=== PATIENT | female | born 1955 | race Caucasian/White ===

== ENCOUNTER 2018-04-18 09:27 | Emergency (ER) | payer OTHER ==
[2018-04-18] MEDS ORDERED: NA CHLORIDE 0.9% 1,000 ML ONE (10:18)
[2018-04-18 10:34] LABS: Absolute Lymphocytes (CBC) 0.9 K/uL (0.7-4.9); Basophils % 0.5 % (0-1.3); Eosinophils % 0.5 % (0-4.4); Hematocrit 42.3 % (36.0-45.0); Lymphocytes % 8.3 % (15.3-44.8); MCH 33.1 pg (27.0-35.0); MCV 97.5 fL (80-100); MPV 8.2 fL (7.6-11.3); Monocytes % 9.2 % (3.3-12.3); RBC Red Blood Cell Count 4.34 M/uL (3.86-4.86)
[2018-04-18] MEDS ORDERED: DICYCLOMINE HCL 10 MG CAP ONE (10:47)
[2018-04-18 10:54] LABS: Albumin 3.7 g/dL (3.4-5.0); Bilirubin Direct 0.1 mg/dL (0-0.2); Bilirubin Total 0.7 mg/dL (0.2-1.0); Potassium 3.9 mmol/L (3.5-5.1); Protein, Total 7.2 g/dL (6.4-8.2)
--- NOTE | 2018-04-18 12:30 | ER ---
Nurse's Notes [facility] Name: Madison Fay Age: 62 yrs Sex: Female : 1955 Arrival Date: 04/18/2018 Time: 09:30 Bed 17 Private MD: Jakub Rodgers E Diagnosis: Gastrointestinal hemorrhage, unspecified Presentation: 04/18 09:38 Presenting complaint: Patient states: Reports small amount of bright red blood aj streaking on toilet paper and small amount in toilet bowl yesterday after episodes of constipation. Transition of care: patient was not received from another setting of care. Onset of symptoms was April 17, 2018. Risk Assessment: Do you want to hurt yourself or someone else? Patient reports no desire to harm self or others. Initial Sepsis Screen: Does the patient meet any 2 criteria? No. Patient's initial sepsis screen is negative. Does the patient have a suspected source of infection? No. Patient's initial sepsis screen is negative. Care prior to arrival: None. 09:38 Method Of Arrival: Ambulatory aj 09:38 Acuity: SHAUN 3 aj Triage Assessment: 09:41 General: Appears in no apparent distress. comfortable, Behavior is calm, cooperative, aj appropriate for age. Pain: Denies pain. Neuro: Level of Consciousness is awake, alert, obeys commands, Oriented to person, place, time, situation, Appropriate for age. Respiratory: Airway is patent Respiratory effort is even, unlabored, Respiratory pattern is regular, symmetrical. GI: Reports cramping, bloody stool. Derm: Skin is intact, is healthy with good turgor, Skin is pink, warm \T\ dry. normal. Historical: - Allergies: 09:41 No Known Allergies; aj - Home Meds: :41 Simvastatin Oral [Active]; Metoprolol Tartrate Oral [Active]; amlodipine oral [Active]; aj Aspirin Oral [Active]; - PMHx: 09:41 Hyperlipidemia; Hypertension; mitral valve prolapse; hemmorhoids; aj - PSHx: 09:41 None; aj - Immunization history:: Adult Immunizations up to date. - Social history:: Smoking status: Patient/guardian denies using tobacco, Patient uses alcohol, weekly. - Ebola Screening: : Patient negative for fever greater than or equal to 101.5 degrees Fahrenheit, and additional compatible Ebola Virus Disease symptoms Patient denies exposure to infectious person Patient denies travel to an Ebola-affected area in the 21 days before illness onset No symptoms or risks identified at this time. Screenin:09 Abuse screen: Denies threats or abuse. Nutritional screening: No deficits noted. mb3 Tuberculosis screening: No symptoms or risk factors identified. Fall Risk None identified. Assessment: 10:34 General: Appears in no apparent distress. comfortable, Behavior is calm, cooperative, mb3 appropriate for age. Pain: Complains of pain in abdomen. Neuro: No deficits noted. Cardiovascular: No deficits noted. Respiratory: No deficits noted. GI: Abdomen is flat, Bowel sounds present X 4 quads. Abd is soft and non tender X 4 quads. Reports constipation, bloody stool. : No signs and/or symptoms were reported regarding the genitourinary system. EENT: No signs and/or symptoms were reported regarding the EENT system. Derm: No signs and/or symptoms reported regarding the dermatologic system. Musculoskeletal: No signs and/or symptoms reported regarding the musculoskeletal system. Vital Signs: 09:41 BP 155 / 90; Pulse 81; Resp 16; Temp 98.4; Pulse Ox 99% on R/A; Weight 56.7 kg; Height aj 5 ft. 5 in. (165.10 cm); 12:59 BP 140 / 82; Pulse 61; Resp 16; Pulse Ox 97% on R/A; mb3 09:41 Body Mass Index 20.80 (56.70 kg, 165.10 cm) aj ED Course: 09:30 Patient arrived in ED. as 09:30 Jakub Rodgers MD is Private Physician. as 09:36 Jazmin Awad FNP-C is [facility]. snw 09:36 Jc Piedra MD is Attending Physician. snw 09:39 Triage completed. aj 09:41 Arm band placed on left wrist. Patient placed in waiting room, Patient notified of wait aj time. 10:05 Vignesh Hahn, AMANDA is Primary Nurse. mb3 10:22 Inserted saline lock: 22 gauge in right antecubital area, using aseptic technique. mb3 Blood collected. 10:35 Patient has correct armband on for positive identification. Placed in gown. Bed in low mb3 position. Call light in reach. Pulse ox on. NIBP on. 12:28 Jakub Smart MD is Referral Physician. snw 13:04 No provider procedures requiring assistance completed. IV discontinued, intact, mb3 bleeding controlled, No redness/swelling at site. Pressure dressing applied. Administered Medications: 10:27 Drug: NS 0.9% 1000 ml Route: IV; Rate: 1 bolus; Site: right antecubital; mb3 12:42 Follow up: Response: No adverse reaction; IV Status: Completed infusion; IV Intake: mb3 1000ml 10:45 Drug: Bentyl 20 mg Route: PO; mb3 12:43 Follow up: Response: No adverse reaction mb3 12:52 Drug: ProTONIX 40 mg Route: IVP; Site: right antecubital; mb3 12:55 Follow up: Response: No adverse reaction mb3 Intake: 12:42 IV: 1000ml; Total: 1000ml. mb3 Outcome: 12:29 Discharge ordered by . snw 13:04 Discharged to home ambulatory. mb3 13:04 Condition: stable 13:04 Discharge instructions given to patient, Instructed on discharge instructions, follow up and referral plans. medication usage, Demonstrated understanding of instructions, follow-up care, medications, Prescriptions given X 2. 13:04 Patient left the ED. mb3 Signatures: Lashanda Tabor, RN RN Jazmin Guillermo, SURGICAL SUPERVISOR-C SURGICAL SUPERVISOR-Milka Parham Ana ag Barnett, Mark, RN RN mb3 Corrections: (The following items were deleted from the chart) 12:46 12:45 UA MICROSCOPIC+U.LAB.BRZ drawn and sent. EDMS
--- NOTE | 2018-04-18 12:30 | EDPHYS ---
Physician Documentation [facility] Name: Madison Fay Age: 62 yrs Sex: Female : 1955 Arrival Date: 04/18/2018 Time: 09:30 Bed 17 Private MD: Jakub Rodgers E ED Physician Jc Piedra HPI: 04/18 10:23 This 62 yrs old Female presents to ER via Ambulatory with complaints of snw Abdominal Pain, Bloody Stools. 10:23 The patient presents with cramping. Onset: The symptoms/episode began/occurred s/p snw taking too many ex-lax. The symptoms do not radiate. The symptoms are described as crampy. Modifying factors: The symptoms are alleviated by stooling. Severity of pain: At its worst the pain was severe in the emergency department the pain has resolved. hx of constipation. The patient has not recently seen a physician, GI and Cardiology f/u scheduled for Tuesday. Historical: - Allergies: 09:41 No Known Allergies; aj - Home Meds: 09:41 Simvastatin Oral [Active]; Metoprolol Tartrate Oral [Active]; amlodipine oral [Active]; aj Aspirin Oral [Active]; - PMHx: 09:41 Hyperlipidemia; Hypertension; mitral valve prolapse; hemmorhoids; aj - PSHx: 09:41 None; aj - Immunization history:: Adult Immunizations up to date. - Social history:: Smoking status: Patient/guardian denies using tobacco, Patient uses alcohol, weekly. - Ebola Screening: : Patient negative for fever greater than or equal to 101.5 degrees Fahrenheit, and additional compatible Ebola Virus Disease symptoms Patient denies exposure to infectious person Patient denies travel to an Ebola-affected area in the 21 days before illness onset No symptoms or risks identified at this time. ROS: 10:20 Constitutional: Negative for fever, chills, and weight loss, Eyes: Negative for injury, snw pain, redness, and discharge, ENT: Negative for injury, pain, and discharge, Neck: Negative for injury, pain, and swelling, Cardiovascular: Negative for chest pain, palpitations, and edema, Respiratory: Negative for shortness of breath, cough, wheezing, and pleuritic chest pain, Back: Negative for injury and pain, : Negative for injury, bleeding, discharge, and swelling, MS/Extremity: Negative for injury and deformity, Skin: Negative for injury, rash, and discoloration, Neuro: Negative for headache, weakness, numbness, tingling, and seizure. 10:20 Abdomen/GI: Positive for constipation, relieved with stool softener and extra exlax- severe cramping and + results, last night noted bright red blood streaking in stool, denies abdominal pain. Exam: 10:20 Constitutional: This is a well developed, well nourished patient who is awake, alert, snw and in no acute distress. Head/Face: Normocephalic, atraumatic. Eyes: Pupils equal round and reactive to light, extra-ocular motions intact. Lids and lashes normal. Conjunctiva and sclera are non-icteric and not injected. Cornea within normal limits. Periorbital areas with no swelling, redness, or edema. ENT: Nares patent. No nasal discharge, no septal abnormalities noted. Tympanic membranes are normal and external auditory canals are clear. Oropharynx with no redness, swelling, or masses, exudates, or evidence of obstruction, uvula midline. Mucous membranes moist. Neck: Trachea midline, no thyromegaly or masses palpated, and no cervical lymphadenopathy. Supple, full range of motion without nuchal rigidity, or vertebral point tenderness. No Meningismus. Chest/axilla: Normal chest wall appearance and motion. Nontender with no deformity. No lesions are appreciated. Cardiovascular: Regular rate and rhythm with a normal S1 and S2. No gallops, murmurs, or rubs. Normal PMI, no JVD. No pulse deficits. Respiratory: Lungs have equal breath sounds bilaterally, clear to auscultation and percussion. No rales, rhonchi or wheezes noted. No increased work of breathing, no retractions or nasal flaring. Abdomen/GI: Soft, non-tender, with normal bowel sounds. No distension or tympany. No guarding or rebound. No evidence of tenderness throughout. + cramping, + bright red streaks, no rectal pain Back: No spinal tenderness. No costovertebral tenderness. Full range of motion. Skin: Warm, dry with normal turgor. Normal color with no rashes, no lesions, and no evidence of cellulitis. MS/ Extremity: Pulses equal, no cyanosis. Neurovascular intact. Full, normal range of motion. Neuro: Awake and alert, GCS 15, oriented to person, place, time, and situation. Cranial nerves II-XII grossly intact. Motor strength 5/5 in all extremities. Sensory grossly intact. Cerebellar exam normal. Normal gait. Vital Signs: 09:41 BP 155 / 90; Pulse 81; Resp 16; Temp 98.4; Pulse Ox 99% on R/A; Weight 56.7 kg; Height aj 5 ft. 5 in. (165.10 cm); 12:59 BP 140 / 82; Pulse 61; Resp 16; Pulse Ox 97% on R/A; mb3 09:41 Body Mass Index 20.80 (56.70 kg, 165.10 cm) aj MDM: 10:03 Patient medically screened. snw 12:30 Data reviewed: vital signs, nurses notes. Data interpreted: Pulse oximetry: on room air snw is 99 %. Interpretation: normal. Counseling: I had a detailed discussion with the patient and/or guardian regarding: the historical points, exam findings, and any diagnostic results supporting the discharge/admit diagnosis, the presence of at least one elevated blood pressure reading (>120/80) during this emergency department visit, lab results, the need for outpatient follow up, to return to the emergency department if symptoms worsen or persist or if there are any questions or concerns that arise at home. Special discussion: Based on the patient's Hx, exam, and Dx evaluation, there is no indication for emergent surgery or inpatient Tx. It is understood by the patient/guardian that if the Sx's persist or worsen they need to return immediately for re-evaluation. Based on the history and exam findings, there is no indication for further emergent testing or inpatient evaluation. I discussed with the patient/guardian the need to see the director of procurement for further evaluation of the symptoms. I discussed with the patient/guardian the need to see the primary care provider for further evaluation of the symptoms. 04/18 10:13 Order name: Basic Metabolic Panel; Complete Time: :58 snw 04/18 10:13 Order name: CBC with Diff; Complete Time: 10:42 snw 04/18 10:13 Order name: Hepatic Function; Complete Time: :58 snw 04/18 10:13 Order name: Lipase; Complete Time: : snw 04/18 10:23 Order name: Occult Blood--Ancillary bd 04/18 10:13 Order name: IV Saline Lock; Complete Time: 10:34 snw 04/18 10:13 Order name: Labs collected and sent; Complete Time: 10:34 snw 04/18 10:13 Order name: Urine Dipstick-Ancillary (obtain specimen); Complete Time: 12:45 snw 04/18 12:44 Order name: Urine Dipstick--Ancillary (enter results); Complete Time: 13:04 bd Administered Medications: 10:27 Drug: NS 0.9% 1000 ml Route: IV; Rate: 1 bolus; Site: right antecubital; mb3 12:42 Follow up: Response: No adverse reaction; IV Status: Completed infusion; IV Intake: mb3 1000ml 10:45 Drug: Bentyl 20 mg Route: PO; mb3 12:43 Follow up: Response: No adverse reaction mb3 12:52 Drug: ProTONIX 40 mg Route: IVP; Site: right antecubital; mb3 12:55 Follow up: Response: No adverse reaction mb3 Disposition: 17:10 Co-signature as Attending Physician, Jc Piedra MD. rn Disposition: 04/18/18 12:29 Discharged to Home. Impression: Gastrointestinal hemorrhage, unspecified. - Condition is Stable. - Discharge Instructions: Gastrointestinal Bleeding, Hypertension. - Prescriptions for Protonix 40 mg Oral Tablet - take 1 tablet by ORAL route once daily; 30 tablet. Bentyl 20 mg Oral Tablet - take 2 tablet by ORAL route every 6 hours As needed; 40 tablet. - Medication Reconciliation Form, Thank You Letter, Antibiotic Education, Prescription Opioid Use form. - Follow up: Jakub Smart MD; When: as scheduled; Reason: Recheck today's complaints, Continuance of care, Re-evaluation by your physician. Signatures: Dispatcher [employer] Lashanda Bob RN RN Jazmin Guillermo, ROLLS MILL OPERATOR-C ROLLS MILL OPERATOR-Csnw Jc Piedra MD MD rn Barnett, Mark, RN RN mb3 Corrections: (The following items were deleted from the chart) 12:46 10:13 UA MICROSCOPIC+U.LAB.BRZ ordered. EDMN EDMN 13:04 12:29 04/18/2018 12:29 Discharged to Home. Impression: Gastrointestinal hemorrhage, mb3 unspecified. Condition is Stable. Forms are Medication Reconciliation Form, Thank You Letter, Antibiotic Education, Prescription Opioid Use. Follow up: Jakub Smart; When: as scheduled; Reason: Recheck today's complaints, Continuance of care, Re-evaluation by your physician. snw
[2018-04-18] MEDS ORDERED: PANTOPRAZOLE 40 MG INJ ONE (12:48)
[2018-04-18 13:02] LABS: Urine Blood TRACE (NEG); Urine Glucose NEGATIVE (NEG); Urine Protein NEGATIVE (NEG)
[2018-04-18 13:17] VITALS: TEMP 98.4
[2018-04-18 13:18] VITALS: BP 140/82; O2SAT 97
== END 2018-04-18 13:04 | disposition home or self-care (01) ==
LOC: ER 09:27
DX: K92.2 Gastrointestinal hemorrhage, unspecified (principal); E78.5 Hyperlipidemia, unspecified
CPT/HCPCS: 36415; 80048; 80076; 81003; 82272; 83690; 85025; 96361; 96374; 99284; C9113; J7030

== ENCOUNTER 2019-03-30 09:38 | Emergency (ER) | payer OTHER ==
[2019-03-30 10:44] LABS: Absolute Lymphocytes (CBC) 1.1 K/uL (0.7-4.9); Basophils % 1.2 % (0-1.3); Eosinophils % 1.7 % (0-4.4); Hematocrit 44.6 % (36.0-45.0); Lymphocytes % 26.1 % (15.3-44.8); Monocytes % 12.5 % (3.3-12.3); RBC Red Blood Cell Count 4.51 M/uL (3.86-4.86)
--- NOTE | 2019-03-30 10:44 | RAD REPORT ---
EXAM DESCRIPTION: Tamanna Single View03/30/2019 10:35 am CLINICAL HISTORY: Cough COMPARISON: 2013 FINDINGS: The lungs appear clear of acute infiltrate. The heart is normal size IMPRESSION: No acute abnormalities displayed
[2019-03-30 10:46] LABS: Protime INR 0.98
[2019-03-30 11:04] LABS: ALT/SGPT 89 U/L (12-78); AST/SGOT 75 U/L (15-37); Albumin 4.6 g/dL (3.4-5.0); Alkaline Phosphatase 59 U/L (45-117); BUN Blood Urea Nitrogen 9 mg/dL (7-18); Bicarbonate 27 mmol/L (21-32); Bilirubin Direct 0.2 mg/dL (0-0.2); Bilirubin Total 0.7 mg/dL (0.2-1.0); Glucose Level 91 mg/dL (74-106); Lipase 457 U/L (73-393); Magnesium 2.2 mg/dL (1.8-2.4); NT PRO-BNP 116 pg/mL (<125); Potassium 4.1 mmol/L (3.5-5.1); Protein, Total 8.4 g/dL (6.4-8.2); Sodium Level 132 mmol/L (136-145); Troponin (Emerg Dept Use Only) < 0.02 ng/mL (0.0-0.045)
[2019-03-30] MEDS ORDERED: NA CHLORIDE 0.9% 1,000 ML ONE (11:16)
[2019-03-30 11:40] LABS: Urine Blood NEGATIVE (NEG); Urine Glucose NEGATIVE (NEG); Urine Protein NEGATIVE (NEG); Urine Specific Gravity 1.015 (1.005-1.030)
--- NOTE | 2019-03-30 11:45 | RAD REPORT ---
EXAM DESCRIPTION: CT - Abdomen Pelvis W Contrast - 03/30/2019 11:28 am CLINICAL HISTORY: Abdominal pain. Lower abdominal pain COMPARISON: 2012 TECHNIQUE: Computed axial tomography of the abdomen and pelvis was obtained. 100 cc Isovue-300 is ad ministered intravenously. Oral contrast was given. All CT scans are performed using dose optimization technique as appropriate and may include automated exposure control or mA/KV adjustment according to patient size. FINDINGS: The liver, spleen, pancreas, adrenals and kidneys appear unremarkable. The appendix is normal caliber. There is no evidence of diverticulitis
--- NOTE | 2019-03-30 12:19 | ER ---
Nurse's Notes [facility] Name: Madison Fay Age: 63 yrs Sex: Female : 1955 Arrival Date: 03/30/2019 Time: 09:41 Bed 15 Private MD: Jakub Rodgers E Diagnosis: Abdominal tenderness;Constipation Presentation: 03/30 10:02 Presenting complaint: Patient states: lower abd pain X 3 weeks, intermittent, bloating, iw states she feels like something is going down into her stomach, was prescribed doxycycline by Dr. lima, completed it, is due for a repeat colonoscopy. Transition of care: patient was not received from another setting of care. Onset of symptoms was March 20, 2019. Risk Assessment: Do you want to hurt yourself or someone else? Patient reports no desire to harm self or others. Initial Sepsis Screen: Does the patient meet any 2 criteria? No. Patient's initial sepsis screen is negative. Does the patient have a suspected source of infection? No. Patient's initial sepsis screen is negative. Care prior to arrival: None. 10:02 Method Of Arrival: Ambulatory iw 10:02 Acuity: SHAUN 3 iw Triage Assessment: 10:26 General: Appears in no apparent distress. Behavior is calm, cooperative. Respiratory: ls4 Airway is patent Respiratory effort is even, unlabored, Respiratory pattern is regular, Breath sounds are clear bilaterally. GI: Abdomen is non-distended, Stools are reported to be normal. Last BM was March 30, 2019. Bowel sounds present X 4 quads. Abd is soft and non tender X 4 quads. : No deficits noted. 11:08 Pain: Complains of pain in left lower quadrant and right lower quadrant Pain currently ls4 is 3 out of 10 on a pain scale. Neuro: No deficits noted. Cardiovascular: No deficits noted. Derm: Skin is pink, warm \T\ dry. Historical: - Allergies: 10:09 unknown diuretic; iw - Home Meds: 10:08 amlodipine 5 mg tab 1 tab once daily [Active]; metoprolol tartrate 25 mg Oral tab 1 tab iw 2 times per day [Active]; Fish Oil oral oral daily [Active]; simvastatin 40 mg Oral tab 1 tab once daily [Active]; aspirin 81 mg Oral TbEC 1 tab once daily [Active]; Stool Softener oral oral [Active]; - PMHx: 10:08 hemmorhoids; Hyperlipidemia; Hypertension; mitral valve prolapse; iw - PSHx: 10:08 None; iw - Immunization history:: Adult Immunizations up to date. - Social history:: Smoking status: Patient/guardian denies using tobacco. - Ebola Screening: : Patient negative for fever greater than or equal to 101.5 degrees Fahrenheit, and additional compatible Ebola Virus Disease symptoms Patient denies exposure to infectious person Patient denies travel to an Ebola-affected area in the 21 days before illness onset No symptoms or risks identified at this time. - Family history:: not pertinent. Screenin:25 Abuse screen: Denies threats or abuse. Denies injuries from another. Nutritional ls4 screening: No deficits noted. Tuberculosis screening: No symptoms or risk factors identified. Fall Risk None identified. Assessment: 10:27 Musculoskeletal: Circulation, motion, and sensation intact. Capillary refill < 3 ls4 seconds, Range of motion: intact in all extremities, Swelling absent. 10:28 GI: Reports bloating, cramping, flatulence, gaseousness. ls4 11:30 Reassessment: Patient appears in no apparent distress at this time. Patient and/or ls4 family updated on plan of care and expected duration. Pain level reassessed. Patient is alert, oriented x 3, equal unlabored respirations, skin warm/dry/pink. Vital Signs: 10:08 BP 145 / 89; Pulse 61; Resp 16; Temp 98.0; Pulse Ox 99% on R/A; Weight 63.5 kg; Pain ls4 3/10; 10:09 Weight 54.88 kg; Height 5 ft. 4 in. (162.56 cm); Pain 7/10; iw 11:10 BP 138 / 74; Pulse 60; Resp 16; Pulse Ox 99% on R/A; Pain 3/10; ls4 12:42 BP 132 / 72; Pulse 62; Resp 16; Pulse Ox 99% on R/A; Pain 3/10; ls4 10:09 Body Mass Index 20.77 (54.88 kg, 162.56 cm) iw ED Course: 09:41 Patient arrived in ED. mr 09:41 Jakub Rodgers MD is Private Physician. mr 09:50 Eloina Basurto RN is Primary Nurse. ls4 10:00 Vincenzo Perez MD is Attending Physician. lucero 10:05 Triage completed. iw 10:24 Initial lab(s) drawn, by me, sent to lab. Inserted saline lock: 22 gauge in right jb1 antecubital area, using aseptic technique. Blood collected. 10:25 Magnesium Sent. ls4 10:25 LFT's Sent. ls4 10:25 CBC with Diff Sent. ls4 10:25 Patient has correct armband on for positive identification. Bed in low position. Call ls4 light in reach. Side rails up X 1. campus monitor on. Pulse ox on. NIBP on. Warm blanket given. Verbal reassurance given. 10:28 Arm band placed on. ls4 10:32 Basic Metabolic Panel Sent. ls4 10:34 X-ray completed. Portable x-ray completed in exam room. Patient tolerated procedure ml well. 10:35 XRAY Chest (1 view) In Process Unspecified. EDMS 10:58 Urine Dipstick--Ancillary (enter results) Sent. ls4 11:08 No provider procedures requiring assistance completed. ls4 11:30 CT completed. Patient tolerated procedure well. Note: pt rt ac iv not patent, sj discontinued and started a new 22g difussics in lt ac. Patient moved to CT via wheelchair. Patient moved back from CT. 11:43 CT Abd/Pelvis - PO and IV Contrast In Process Unspecified. EDMS 12:09 Jakub Rodgers MD is Referral Physician. lucero 12:09 Jakub Lima MD is Referral Physician. lucero 12:43 IV discontinued, intact, bleeding controlled, No redness/swelling at site. Pressure ls4 dressing applied. Administered Medications: 10:59 Drug: NS 0.9% 1000 ml Route: IV; Rate: 125 ml/hr; Site: right antecubital; ls4 12:38 Follow up: IV Status: Completed infusion; IV Intake: 225ml ls4 Intake: 12:38 IV: 225ml; Total: 225ml. ls4 Outcome: 12:10 Discharge ordered by . lucero 12:42 Discharged to home ambulatory, with family. ls4 12:42 Condition: good 12:42 Discharge instructions given to patient, Instructed on discharge instructions, follow up and referral plans. medication usage, benefits of quitting smoking, Demonstrated understanding of instructions, follow-up care, medications, Prescriptions given X 2. 12:43 Patient left the ED. ls4 Signatures: Dispatcher [employer] TIMOTEO Vargas, Betito jb1 Vincenzo Perez MD MD cha Rivera, Yara Nicole, Shanon Vuong RN RN iw Lopez, Eloina Nguyen RN RN ls4
--- NOTE | 2019-03-30 12:20 | EDPHYS ---
Physician Documentation [facility] Name: Madison Fay Age: 63 yrs Sex: Female : 1955 Arrival Date: 03/30/2019 Time: 09:41 Bed 15 Private MD: Jakub Rodgers E ED Physician Vincenzo Perez HPI: 03/30 10:40 This 63 yrs old Female presents to ER via Ambulatory with complaints of lucero Abdominal Pain. 10:40 This 63 yrs old Female presents to ER via Ambulatory with complaints of lucero Abdominal Pain. 10:40 The patient presents with abdominal pain in the lower abdomen, abdominal distention in lucero the upper abdomen, in the lower abdomen. Onset: The symptoms/episode began/occurred 1 day(s) ago. The symptoms do not radiate. Associated signs and symptoms: none. Modifying factors: The symptoms are alleviated by nothing, the symptoms are aggravated by nothing. Severity of pain: At its worst the pain was mild in the emergency department the pain is unchanged. The patient has not experienced similar symptoms in the past. Historical: - Allergies: 10:09 unknown diuretic; iw - Home Meds: 10:08 amlodipine 5 mg tab 1 tab once daily [Active]; metoprolol tartrate 25 mg Oral tab 1 tab iw 2 times per day [Active]; Fish Oil oral oral daily [Active]; simvastatin 40 mg Oral tab 1 tab once daily [Active]; aspirin 81 mg Oral TbEC 1 tab once daily [Active]; Stool Softener oral oral [Active]; - PMHx: 10:08 hemmorhoids; Hyperlipidemia; Hypertension; mitral valve prolapse; iw - PSHx: 10:08 None; iw - Immunization history:: Adult Immunizations up to date. - Social history:: Smoking status: Patient/guardian denies using tobacco. - Ebola Screening: : Patient negative for fever greater than or equal to 101.5 degrees Fahrenheit, and additional compatible Ebola Virus Disease symptoms Patient denies exposure to infectious person Patient denies travel to an Ebola-affected area in the 21 days before illness onset No symptoms or risks identified at this time. - Family history:: not pertinent. ROS: 10:40 Constitutional: Negative for fever, chills, and weight loss, Eyes: Negative for injury, lucero pain, redness, and discharge, ENT: Negative for injury, pain, and discharge, Neck: Negative for injury, pain, and swelling, Cardiovascular: Negative for chest pain, palpitations, and edema, Respiratory: Negative for shortness of breath, cough, wheezing, and pleuritic chest pain, Back: Negative for injury and pain, : Negative for injury, bleeding, discharge, and swelling, MS/Extremity: Negative for injury and deformity, Skin: Negative for injury, rash, and discoloration, Neuro: Negative for headache, weakness, numbness, tingling, and seizure, Psych: Negative for depression, anxiety, suicide ideation, homicidal ideation, and hallucinations, Allergy/Immunology: Negative for hives, rash, and allergies, Endocrine: Negative for neck swelling, polydipsia, polyuria, polyphagia, and marked weight changes, Hematologic/Lymphatic: Negative for swollen nodes, abnormal bleeding, and unusual bruising. 10:40 Abdomen/GI: Positive for abdominal pain, of the right lower quadrant and left lower quadrant. Exam: 10:40 Constitutional: This is a well developed, well nourished patient who is awake, alert, lucero and in no acute distress. Head/Face: Normocephalic, atraumatic. Eyes: Pupils equal round and reactive to light, extra-ocular motions intact. Lids and lashes normal. Conjunctiva and sclera are non-icteric and not injected. Cornea within normal limits. Periorbital areas with no swelling, redness, or edema. ENT: Nares patent. No nasal discharge, no septal abnormalities noted. Tympanic membranes are normal and external auditory canals are clear. Oropharynx with no redness, swelling, or masses, exudates, or evidence of obstruction, uvula midline. Mucous membranes moist. Neck: Trachea midline, no thyromegaly or masses palpated, and no cervical lymphadenopathy. Supple, full range of motion without nuchal rigidity, or vertebral point tenderness. No Meningismus. Chest/axilla: Normal chest wall appearance and motion. Nontender with no deformity. No lesions are appreciated. Cardiovascular: Regular rate and rhythm with a normal S1 and S2. No gallops, murmurs, or rubs. Normal PMI, no JVD. No pulse deficits. Respiratory: Lungs have equal breath sounds bilaterally, clear to auscultation and percussion. No rales, rhonchi or wheezes noted. No increased work of breathing, no retractions or nasal flaring. Back: No spinal tenderness. No costovertebral tenderness. Full range of motion. Female : Normal external genitalia. Skin: Warm, dry with normal turgor. Normal color with no rashes, no lesions, and no evidence of cellulitis. MS/ Extremity: Pulses equal, no cyanosis. Neurovascular intact. Full, normal range of motion. Neuro: Awake and alert, GCS 15, oriented to person, place, time, and situation. Cranial nerves II-XII grossly intact. Motor strength 5/5 in all extremities. Sensory grossly intact. Cerebellar exam normal. Normal gait. Psych: Awake, alert, with orientation to person, place and time. Behavior, mood, and affect are within normal limits. 10:40 Abdomen/GI: Inspection: abdomen appears normal, Bowel sounds: normal, Palpation: mild abdominal tenderness, in the right lower quadrant and left lower quadrant, Liver: no appreciated palpable abnormalities, Hernia: not appreciated. Vital Signs: 10:08 BP 145 / 89; Pulse 61; Resp 16; Temp 98.0; Pulse Ox 99% on R/A; Weight 63.5 kg; Pain ls4 3/10; 10:09 Weight 54.88 kg; Height 5 ft. 4 in. (162.56 cm); Pain 7/10; iw 11:10 BP 138 / 74; Pulse 60; Resp 16; Pulse Ox 99% on R/A; Pain 3/10; ls4 12:42 BP 132 / 72; Pulse 62; Resp 16; Pulse Ox 99% on R/A; Pain 3/10; ls4 10:09 Body Mass Index 20.77 (54.88 kg, 162.56 cm) iw MDM: 10:00 Patient medically screened. [facility] 10:40 Data reviewed: vital signs, nurses notes, lab test result(s), EKG, radiologic studies. [facility] 03/30 10:04 Order name: Basic Metabolic Panel [facility] 03/30 10:04 Order name: CBC with Diff 03/30 10:04 Order name: LFT's 03/30 10:04 Order name: Magnesium [facility] 03/30 10:04 Order name: NT PRO-BNP; Complete Time: 11:42 [facility] 03/30 10:04 Order name: PT-INR; Complete Time: 11:42 [facility] 03/30 10:04 Order name: Troponin (emerg Dept Use Only); Complete Time: 11:42 [facility] 03/30 10:04 Order name: Lipase; Complete Time: 11:42 [facility] 03/30 10:04 Order name: Urine Culture [facility] 03/30 10:05 Order name: Basic Metabolic Panel; Complete Time: 11:42 [facility] 03/30 10:05 Order name: CBC with Automated Diff; Complete Time: 11:42 [facility] 03/30 10:05 Order name: Liver (Hepatic) Function; Complete Time: 11:42 [facility] 03/30 10:05 Order name: Magnesium; Complete Time: 11:42 [facility] 03/30 10:43 Order name: Urine Dipstick--Ancillary (enter results) 03/30 10:04 Order name: XRAY Chest (1 view); Complete Time: 11:42 [facility] 03/30 10:04 Order name: EKG; Complete Time: 10:07 [facility] 03/30 10:04 Order name: Cardiac monitoring; Complete Time: 10:24 [facility] 03/30 10:04 Order name: EKG - Nurse/Tech; Complete Time: 10:29 [facility] 03/30 10:04 Order name: IV Saline Lock; Complete Time: 10:25 [facility] 03/30 10:04 Order name: Labs collected and sent; Complete Time: 10:25 [facility] 03/30 10:04 Order name: O2 Per Protocol; Complete Time: 10:24 [facility] 03/30 10:04 Order name: O2 Sat Monitoring; Complete Time: 10:32 [facility] 03/30 10:04 Order name: Urine Dipstick-Ancillary (obtain specimen); Complete Time: 10:29 [facility] 03/30 10:04 Order name: CT Abd/Pelvis - PO and IV Contrast [facility] Administered Medications: 10:59 Drug: NS 0.9% 1000 ml Route: IV; Rate: 125 ml/hr; Site: right antecubital; ls4 12:38 Follow up: IV Status: Completed infusion; IV Intake: 225ml ls4 Disposition: 03/30/19 12:10 Discharged to Home. Impression: Abdominal tenderness, Constipation. - Condition is Stable. - Discharge Instructions: Abdominal Pain, Adult, Constipation, Adult, Constipation, Adult, [id number], Abdominal Pain, Adult, [id number]. - Prescriptions for Bentyl 20 mg Oral Tablet - take 1 tablet by ORAL route every 6 hours As needed; 20 tablet. Pepcid 20 mg Oral Tablet - take 1 tablet by ORAL route every 12 hours for 10 days; 20 tablet. - Medication Reconciliation Form, Thank You Letter, Antibiotic Education, Prescription Opioid Use form. - Follow up: Jakub Rodgers MD; When: 2 - 3 days; Reason: Recheck today's complaints, Continuance of care, Re-evaluation by your physician. Follow up: Jakub Smart MD; When: 2 - 3 days; Reason: Recheck today's complaints, Continuance of care, Re-evaluation by your physician. - Problem is new. - Symptoms have improved. Signatures: Dispatcher [employer] EDMS Vincenzo Perez MD MD cha Williams, Irene, AMANDA RN iw Eloina Basurto RN RN ls4 Corrections: (The following items were deleted from the chart) 12:43 12:10 03/30/2019 12:10 Discharged to Home. Impression: Abdominal tenderness; ls4 Constipation. Condition is Stable. Forms are Medication Reconciliation Form, Thank You Letter, Antibiotic Education, Prescription Opioid Use. Follow up: Jakub Rodgers; When: 2 - 3 days; Reason: Recheck today's complaints, Continuance of care, Re-evaluation by your physician. Follow up: Jakub Smart; When: 2 - 3 days; Reason: Recheck today's complaints, Continuance of care, Re-evaluation by your physician. Problem is new. Symptoms have improved. lucero
[2019-03-30 13:10] VITALS: TEMP 98; O2SAT 99
[2019-03-30 13:13] VITALS: BP 132/72
--- NOTE | 2019-03-30 16:42 | EKG ---
Test Date: 2019-03-30 Test Time: 10:30:13 Commissary Worker: PENNY MEASUREMENT RESULTS: Intervals: Rate: 65 HI: 192 QRSD: 90 QT: 416 QTc: 432 [place]: P: 59 HI: 192 QRS: -10 T: 27 INTERPRETIVE STATEMENTS: Normal sinus rhythm Normal ECG Compared to ECG 07/07/2014 10:44:12 No significant changes Electronically Signed On 03-30-19 16:41:42 CDT by Denzel Brown
== END 2019-03-30 12:43 | disposition home or self-care (01) ==
LOC: ER 09:38
DX: K59.00 Constipation, unspecified (principal); I10 Essential (primary) hypertension; E78.5 Hyperlipidemia, unspecified; I34.1 Nonrheumatic mitral (valve) prolapse; Z79.82 Long term (current) use of aspirin
CPT/HCPCS: 36415; 71045; 74177; 80048; 80076; 81003; 83690; 83735; 83880; 84484; 85025; 85610; 87086; 87088; 93005; 96360; 96361; 99285; J7030; Q9967

== ENCOUNTER 2022-09-11 12:31 | Inpatient (IN) | payer OTHER ==
[2022-09-11 13:18] VITALS: BMI 21.1
[2022-09-11] MEDS ORDERED: LIDOCAINE 2% MPF 5 ML VIAL ONE ×2 (15:12)
[2022-09-11] MEDS ORDERED: propofoL 200 MG/20 ML VIAL IV ONE (15:12)
[2022-09-11] MEDS ORDERED: FENTANYL CITR 100 MCG/2 ML ONE (15:13)
[2022-09-11] MEDS ORDERED: ROCURONIUM 50 MG/5 ML VIAL IV ONE (15:13)
[2022-09-11] MEDS ORDERED: dexAMETHasone 10 MG/ML VIAL ONE (15:18)
[2022-09-11] MEDS ORDERED: ONDANSETRON 4 MG/2 ML VIAL ONE (15:18)
[2022-09-11] MEDS ORDERED: KETOROLAC 30 MG/ML INJ ONE (15:18)
[2022-09-11] MEDS ORDERED: Ringers Lactate 1,000 ML IV ONE (15:40)
[2022-09-11] MEDS ORDERED: CEFOXITIN SODIUM 1 GM/VIAL ONE (15:47)
[2022-09-11] MEDS ORDERED: NA CIT/CITRIC AC 30 ML ORAL UDC ONE (15:51)
--- NOTE | 2022-09-11 16:07 | P.HP ---
Date of Service: 09/11/22 PC: This 66-year-old female presented to the emergency room with severe right lower quadrant abdominal pain for diagnosis and treatment. HPC: Patient states that her pain began yesterday. Just had generalized abdominal pain and bloating. Today however the pain intensified she could no longer stand it and came to the ER for evaluation. PSHx: Tubal ligation PMHx: Hypertension, mitral valve prolapse Social Hx: Allergic to hydrochlorothiazide Sys R: No cough, wheeze, shortness of breath. No chest pain or palpitations. Denies any urinary complaints. States he is otherwise been in good health. O/E: Awake alert vital signs are stable HEENT: Not jaundiced Chest: Chest movement equal bilaterally Abd: Patient is markedly tender in the right lower quadrant with guarding [place]: Intact Data: CT scan supports clinical diagnosis of acute abdomen with appendicitis Impression: Acute abdomen with appendicitis Plan: I will taken the operating room for laparoscopic possible open appendectomy. The risks of this procedure have been discussed. The possibility of bleeding, infection, injury to bowel and surrounding structures was outlined. The possible need for an open and or further surgeries and procedures was discussed. She understands and wants us to proceed.
[2022-09-11] MEDS ORDERED: LABETALOL 20 MG/4ML SYRINGE IV ONE ×2 (16:17→16:36)
[2022-09-11] MEDS ORDERED: GLYCOPYRROLATE 0.2 MG/ML SYR ONE (16:35)
[2022-09-11] MEDS ORDERED: SUGAMMADEX SODIUM 200 MG/2 ML VIAL IV ONE (17:12)
--- NOTE | 2022-09-11 17:18 | P.OP ---
Preoperative diagnosis: Acute abdomen with appendicitis Postoperative diagnosis: The same with intra-abdominal adhesions Primary procedure: Laparoscopic appendectomy Secondary procedure: Lysis of extensive adhesions Anesthesia: General Estimated blood loss: Less than 20 cc Specimen: 1 appendix Operative Technique: The patient brought the operating room and placed supine on the table. After the induction of adequate general endotracheal anesthesia, the area of the abdomen was prepped with a DuraPrep solution, a Cervantes catheter was inserted, and she was draped in the usual aseptic manner. Subumbilical incision was made. This was brought down through the skin and subcutaneous tissue. The Visiport was used to enter the peritoneal cavity and created pneumoperitoneum to approximately 12 mmHg. Under direct vision a 5 mm trocar was placed in the right upper quadrant, and another down in the midline between the pubic symphysis and the umbilicus. The patient was now placed in reverse Trendelenburg. The patient table was rolled to the left. We could visualize the right lower quadrant. We were immediately struck by the omentum being adherent to the anterior abdominal wall in the right lower quadrant. These adhesions were taken down using blunt and sharp dissection. As we did so we could finally see the cecum which lay in a pelvic position. There were considerable amount of adhesions to the right lateral sidewall. These were freed up and we were able to mobilize the cecum medially. As we did so we saw that the distal ileum is adherent to the area. The appendix was identified. It was found to be rather short and stabbing with a broad base. The junction between the cecum and the appendix was identified. We were able to insert a linear stapler across this after converting the 10 mm to a 12 at the umbilicus. The instrument was fired. A reload was now brought up to the vasculature of the appendix. This was placed across the mesentery of the appendix and fired. The specimen was now removed. Attention was turned back towards the cecum and distal ileum. In this area there was some adhesions on the serosal surfaces that held the structures together. The omentum was also adherent in this area. It was gently freed up to mobilize this area. These are longstanding adhesions and were quite thick. The structures having been returned to their normal anatomical position the rest of the abdomen was inspected. No other gross pathology was noted. At this point attention was turned back towards the umbilicus. This was approximated using the Endo Close and absorbable suture. At this point the trochars were removed, the pneumoperitoneum collapsed, and the suture tied. Perry were then applied to the skin. At the end of the procedure she was in a stable condition when sent to the recovery room. Needle sponge instrument count were correct. No drains were placed. Complications: None Transferred to: Recovery Room Condition: Good
[2022-09-11] MEDS ORDERED: NEOSTIGMINE 1 MG/ML -10 ML VIAL ONE (17:22)
[2022-09-11] MEDS ORDERED: PROMETHAZINE INJ 25 MG/ML AMP ONE (17:23)
[2022-09-11] MEDS: HYDROMORPHONE HCL 1 MG/ML INJ ONE ×4 (17:27→17:51)
[2022-09-11] MEDS ORDERED: ONDANSETRON 4 MG/2 ML VIAL IV PRN (17:57)
[2022-09-11] MEDS ORDERED: MORPHINE 4 MG/ML SYR IV PRN (17:57)
[2022-09-11] MEDS ORDERED: HYDROCODONE/APAP 7.5/325 MG TAB PO PRN (17:57)
[2022-09-11] MEDS ORDERED: Ringers Lactate 1,000 ML IV SCH (18:00)
[2022-09-12 09:21] VITALS: O2SAT 97
--- NOTE | 2022-09-12 16:31 | P.DS ---
Admission Date: 09/11/22 Discharge Date: 09/12/22 Disposition: ROUTINE DISCHARGE Discharge Condition: GOOD Reason for Admission: Acute postoperative abdominal pain Procedures: Laparoscopic appendectomy, lysis of extensive intra-abdominal adhesions Brief History of Present Illness: Patient presented to the emergency room after a 24-hour history of right lower quadrant abdominal pain Hospital Course: The patient was seen in the emergency room. A CT scan confirmed the clinical diagnosis of acute appendicitis. She was brought to the operating room where she underwent an appendectomy. At that time it was found that there was a marked amount of adhesions and scar tissue particularly in the right lower quadrant necessitating taking down this considerable adhesive load. The appendix having been identified, was dealt with in the usual manner. The patient was admitted postoperatively for observation and pain control due to the extent with which we had to dissect down these adhesions. Today she is up ambulating, tolerating a diet, feels much better, and is anxious to go home. Vital Signs/Physical Exam: Temp Pulse Resp BP Pulse Ox 98.2 F 80 16 127/70 97 09/12/22 12:00 09/12/22 12:00 09/12/22 12:00 09/12/22 12:00 09/12/22 12:00 Home Medications: Amlodipine [Norvasc] 10 mg PO DAILY 09/11/22 Aspirin [Aspirin EC 81 MG] 81 mg PO DAILY 09/11/22 Bifidobacterium Infantis [Align] 4 mg PO DAILY 09/11/22 Calcium Carbonate [Calcium] 600 mg PO DAILY 09/11/22 Cholecalciferol (Vitamin D3) [Vitamin D 1000 Iu Tab*] 1,000 unit PO DAILY 09/11/22 Docusate [Colace Cap*] 100 mg PO DAILY 09/11/22 Fish Oil/Dha/Epa [Fish Oil 1,200 mg Fish Oil] 1,200 mg PO BID 09/11/22 Folic Acid 1 mg PO DAILY 09/11/22 Metoprolol Tartrate 25 mg PO BID 09/11/22 Simvastatin 40 mg PO DAILY 09/11/22 Physician Discharge Instructions: DC IV, discharge home. Diet as tolerated. Keep yourself well-hydrated. Incentive spirometer. You may shower. Change dressings as needed. Pain medicine as discussed. Milk of magnesia or stool softeners as needed. Call my office for an appointment to be seen next or Tuesday. Any questions or problems, go to the emergency room, or contact my office. Diet: Regular Activity: Ad saud Followup: Lexa Kirkland MD [ACTIVE - CAN ADMIT] - 1-2 Weeks
[2022-09-12 16:46] VITALS: BP 149/69; TEMP 98.9
== END 2022-09-12 17:20 | disposition home or self-care (01) | DRG 337 ==
LOC: 2ND 12:31
PROVIDERS: ADMIT Surgery; ATTEND Surgery
PROC: 0DNW4ZZ Release Peritoneum, Percutaneous Endoscopic Approach (ICD-10-PCS; 2022-09-11)
PROC: 0DTJ4ZZ Resection of Appendix, Percutaneous Endoscopic Approach (ICD-10-PCS; principal; 2022-09-11 15:00)
DX: K35.80 Unspecified acute appendicitis (principal); K66.0 Peritoneal adhesions (postprocedural) (postinfection); I34.1 Nonrheumatic mitral (valve) prolapse; I10 Essential (primary) hypertension; Z98.51 Tubal ligation status; Z88.8 Allergy status to other drugs, medicaments and biological substances
CPT/HCPCS: 88304; 94010; J0694; J1100; J1170; J2001; J2405; J2550; J2704; J2710; J3010; J7120

== ENCOUNTER 2023-03-18 23:33 | Emergency (ER) | payer OTHER ==
[2023-03-19 00:35] LABS: Absolute Lymphocytes (CBC) 0.6 K/uL (0.7-4.9); Hematocrit 40.2 % (36.0-45.0); Lymphocytes % 6.2 % (15.3-44.8); MCV 96.8 fL (80-100); MPV 7.3 fL (7.6-11.3); RBC Red Blood Cell Count 4.16 M/uL (3.86-4.86)
[2023-03-19 00:53] LABS: Albumin 4.4 g/dL (3.4-5.0); Bilirubin Total 0.6 mg/dL (0.2-1.0); Potassium 3.7 mEq/L (3.5-5.1); Protein, Total 8.2 g/dL (6.4-8.2)
[2023-03-19 01:06] LABS: Urine Bilirubin 2+ (Negative); Urine Clarity Clear (Clear); Urine Color DK YELLOW (Yellow); Urine Glucose NEGATIVE (Negative)
[2023-03-19 01:07] LABS: Urine Blood Negative (Negative); Urine Protein 1+ (Negative); Urine Urobilinogen 2+ mg/dL (0.2-1.0)
[2023-03-19] MEDS ORDERED: NA CHLORIDE 0.9% 1,000 ML ONE (02:05)
[2023-03-19] MEDS ORDERED: ACETAMINOPHEN 500 MG TAB ONE (02:05)
[2023-03-19] MEDS ORDERED: ONDANSETRON 4 MG/2 ML VIAL ONE (02:05)
[2023-03-19] MEDS ORDERED: IBUPROFEN 400 MG TAB ONE (02:05)
[2023-03-19 03:27] LABS: SARS-CoV-2 Antigen Rapid Res Negative (Negative)
[2023-03-19] MEDS ORDERED: CEFTRIAXONE 1000 MG/VIAL ONE (03:35)
[2023-03-19] MEDS ORDERED: NA CHLORIDE 0.9% 50 ML ONE (03:36)
--- NOTE | 2023-03-19 03:46 | EDPHYS ---
Physician Documentation [facility] Name: Madison Fay Age: 67 yrs Sex: Female : 1955 Arrival Date: 03/18/2023 Time: 23:33 Bed 7 Private MD: ED Physician Kennedy Conklin HPI: 03/18 23:41 This 67 yrs old Female presents to ER via Unassigned with complaints of Pain sp4 With Urination, Nausea, Fever, PT states she can't quit shaking. 03/19 02:27 67-year-old female with history of hyperlipidemia, hypertension, mitral valve prolapse, sp4 hemorrhoids presents with feeling unwell for 1 week. Patient was seen at [facility] for the same and was diagnosed with UTI prescribed Bactrim, prior ED him today but she felt unwell at home and returns now for fever chills and complaint of cloudy urine. Patient additionally 1 week ago was seen by her primary physician who diagnosed her with UTI and gave her Macrobid p.o.. Today patient complains of generalized fatigue, pain with urination, nausea, fever, and feeling unwell. Historical: - Allergies: 03/18 23:56 HCTZ; pf1 - PMHx: 23:56 Hyperlipidemia; Hypertension; mitral valve prolapse; hemmorhoids; pf1 - PSHx: 23:56 Appendectomy; pf1 - Social history:: Patient/guardian denies using alcohol, street drugs, IV drugs, caffeine, over the counter diet medications, tobacco products. - Family history:: not pertinent. ROS: 03/19 02:27 Constitutional: Positive for fever, chills, and generalized weakness, negative for sp4 weight loss. Eyes: Negative for injury, pain, redness, and discharge, ENT: Negative for injury, pain, and discharge, Neck: Negative for injury, pain, and swelling, Cardiovascular: Negative for chest pain, palpitations, and edema, Respiratory: Negative for shortness of breath, cough, wheezing, and pleuritic chest pain, Abdomen/GI: Negative for abdominal pain, nausea, vomiting, diarrhea, and constipation, Back: Negative for injury and pain, : Negative for injury, bleeding, discharge, and swelling, positive for pain on urination and cloudy urine. MS/Extremity: Negative for injury and deformity, Skin: Negative for injury, rash, and discoloration, Neuro: Negative for headache, weakness, numbness, tingling, and seizure, Psych: Negative for depression, anxiety, Allergy/Immunology: Negative for hives, rash, and allergies Endocrine: Negative for neck swelling, polydipsia, polyuria, polyphagia, and weight changes Hematologic/Lymphatic: Negative for swollen nodes, abnormal bleeding, and unusual bruising Exam: 02:27 Constitutional: This is a well developed, well nourished patient who is awake, alert, sp4 and in no acute distress. Head/Face: Normocephalic, atraumatic. Eyes: Pupils equal round and reactive to light, extra-ocular motions intact. Lids and lashes normal. Conjunctiva and sclera are not injected. Cornea within normal limits. Periorbital areas with no swelling, redness, or edema. ENT: Nares patent. No nasal discharge, no septal abnormalities noted. Tympanic membranes are normal and external auditory canals are clear. Oropharynx with no redness, swelling, or masses, exudates, or evidence of obstruction, uvula midline. Mucous membranes moist. Neck: Trachea midline, no thyromegaly or masses palpated, and no cervical lymphadenopathy. Supple, full range of motion without nuchal rigidity, or vertebral point tenderness. Chest/axilla: Normal chest wall appearance and motion. Nontender with no deformity. No lesions are appreciated. Cardiovascular: Regular rate and rhythm with a normal S1 and S2. No gallops, murmurs, or rubs. Normal PMI, no JVD. No pulse deficits. Respiratory: Lungs have equal breath sounds bilaterally, clear to auscultation and percussion. No rales, rhonchi or wheezes noted. No increased work of breathing, no retractions or nasal flaring. Abdomen/GI: Soft, non-tender, with normal bowel sounds. No distension or tympany. No guarding or rebound. No evidence of tenderness throughout. Back: No spinal tenderness. No costovertebral tenderness. Skin: Warm, dry with normal turgor. Normal color with no rashes, no lesions, and no evidence of cellulitis. MS/ Extremity: Pulses equal, no cyanosis. Neurovascular intact. Full, normal range of motion. Neuro: Awake and alert, GCS 15, oriented to person, place, time, and situation. Cranial nerves II-XII grossly intact. Motor strength 5/5 in all extremities. Sensory grossly intact. Psych: Awake, alert, with orientation to person, place and time. Behavior, mood, and affect are within normal limits Vital Signs: 03/18 23:50 BP 138 / 91; Pulse 104; Resp 18; Temp 103; Pulse Ox 97% on R/A; Weight 56.7 kg; Height pf1 5 ft. 5 in. ; Pain 9/10; 03/19 02:43 BP 133 / 77; Pulse 89; Resp 16; Pulse Ox 96% on R/A; kl 03:01 Temp 98.9(O); kl 03:19 BP 128 / 75; Pulse 74; kl 04:12 BP 127 / 66; Pulse 68; Resp 15; Pulse Ox 99% on R/A; kl 03/18 23:50 Body Mass Index 20.80 (56.70 kg, 165.1 cm) pf1 03/18 23:50 Pain Scale: Adult pf1 MDM: 03/18 23:43 Patient medically screened. sp4 03/19 02:27 ED course: PROCEDURE: Abdomen Pelvis W Contrast CLINICAL HISTORY: pain with urination, sp4 lower back pain, fever TECHNIQUE: Contiguous axial images obtained through the abdomen and pelvis following the uneventful administration of IV contrast. Coronal and sagittal reformatted images were provided. This exam was performed according to our departmental dose-optimization program, which includes automated exposure control, adjustment of the mA and/or kV according to patient size and/or use of iterative reconstruction technique. COMPARISON: March 2019. FINDINGS: Lung bases: Clear Liver: Unremarkable Gallbladder and biliary system: Unremarkable Pancreas: Unremarkable Spleen: Unremarkable Adrenals: Unremarkable Kidneys: Normal renal cortical enhancement. No calculi No hydronephrosis. GI: No obstruction. No appreciable mucosal thickening. Mild sigmoid diverticulosis with no evidence of diverticulitis. Appendix: Status post appendectomy. Urinary bladder: Incompletely distended. Reproductive: Unremarkable as visualized Lymph nodes: No pathologically enlarged lymph nodes. Peritoneum: No focal fluid collection. No free air. Vessels: No abdominal aortic aneurysm. Abdominal wall: Unremarkable Bones: Degenerative changes of the lumbar spine with scoliotic curvature, similar to the prior examination. IMPRESSION: 1. No acute intra-abdominal or pelvic disease. 2. Mild sigmoid diverticulosis with no evidence of diverticulitis. . 03:43 Differential diagnosis: gastritis, diverticulitis, viral gastroenteritis, sp4 gastroenteritis. Data reviewed: vital signs, nurses notes, lab test result(s), radiologic studies, CT scan. Consideration of Admission/Observation Escalation of care including admission/observation considered. ED course: CT revealed no signs of pyelonephritis, urine is infected. Will prescribe patient Keflex 4 times a day for 10 days. Also ondansetron and ibuprofen.. 03/18 23:43 Order name: CBC with Diff; Complete Time: 02: sp4 03/18 23:43 Order name: CMP; Complete Time: 02: sp4 03/18 23:43 Order name: Lipase; Complete Time: 02: 4 03/18 23:43 Order name: Urinalysis w/ reflexes; Complete Time: 02: [facility] 03/19 02:27 Order name: Influenza Screen (a \T\ B); Complete Time: 03:43 4 03/19 02:27 Order name: SARS RAPID; Complete Time: 03:43 [facility] 03/18 23:53 Order name: CT Abd/Pelvis - IV Contrast Only 4 03/18 23:43 Order name: IV Saline Lock 4 03/18 23:43 Order name: Labs collected and sent sp4 Administered Medications: 02:01 Drug: Ibuprofen PO 800 mg Route: PO; kl 03:58 Follow up: Response: Marked relief of symptoms kl 02:02 Drug: NS 0.9% IV 1000 ml Route: IV; Rate: 1 bolus; Site: left antecubital; kl 02:02 Drug: Ondansetron IVP 4 mg Route: IVP; Site: left antecubital; kl 03:58 Follow up: Response: No adverse reaction kl 02:02 Drug: Acetaminophen PO 1000 mg Route: PO; kl 03:58 Follow up: Response: Marked relief of symptoms kl 03:31 Drug: Rocephin - Rocephin (cefTRIAXone) IVPB 1 grams Route: IVPB; Infused Over: 30 kl mins; Site: left antecubital; 03:58 Follow up: IV Status: Completed infusion; IV Intake: 50ml kl Disposition Summary: 03/19/23 03:45 Discharge Ordered Location: Home sp4 Problem: new sp4 Symptoms: have improved sp4 Condition: Stable sp4 Diagnosis - UTI/ Urinary tract infection, site not specified sp4 - Acute febrile illness sp4 Followup: sp4 - With: Private Physician - When: 5 - 6 days - Reason: Recheck today's complaints Discharge Instructions: - Discharge Summary Sheet sp4 - Urinary Tract Infection, Adult sp4 Prescriptions: - Cephalexin 500 mg Oral Capsule - take 1 capsule by ORAL route every 6 hours for 10 days; 40 capsule; Refills: 0, sp4 Product Selection Permitted - Ibuprofen 600 mg Oral Tablet - take 1 tablet by ORAL route every 6 hours As needed take with food; 30 tablet; sp4 Refills: 0, Product Selection Permitted - Zofran 4 mg Oral Tablet - take 1 tablet by ORAL route every 6 hours As needed PRN nausea; 30 tablet; sp4 Refills: 0, Product Selection Permitted Signatures: Dispatcher [employer] Regina Driscoll RN Amrita Adler RN RN pf1 Kennedy Conklin MD MD sp4
--- NOTE | 2023-03-19 03:46 | ER ---
Nurse's Notes [facility] Name: Madison Fay Age: 67 yrs Sex: Female : 1955 Arrival Date: 03/18/2023 Time: 23:33 Bed 7 Private MD: Diagnosis: UTI/ Urinary tract infection, site not specified;Acute febrile illness Presentation: 03/18 23:50 Chief complaint: Patient states: pain with urination, lower back pain of 6,onset 1 week pf1 with fever and shaking/chills,started today. Patient stated is currently taking Bactrim and Pyridium today from Dr. Rodgers office. Coronavirus screen: Vaccine status: Patient reports receiving the 2nd dose of the covid vaccine. 3 doses of Moderna Client denies travel out of the [place] in the last 14 days. At this time, the client does not indicate any symptoms associated with coronavirus-19. Ebola Screen: Patient negative for fever greater than or equal to 101.5 degrees Fahrenheit, and additional compatible Ebola Virus Disease symptoms. Initial Sepsis Screen: Does the patient meet any 2 criteria? Temp <36.0*C (96.8*F)) or > 38.3*C (100.9*F). HR > 90 bpm. Yes Does the patient have a suspected source of infection? Yes: Dysuria/Frequency/Urgency/UTI If YES to both, name of provider notified: Kennedy Conklin MD. Risk Assessment: Do you want to hurt yourself or someone else? Patient reports no desire to harm self or others. 23:50 Method Of Arrival: Ambulatory pf1 23:50 Acuity: SHAUN 3 pf1 Historical: - Allergies: 23:56 HCTZ; pf1 - PMHx: 23:56 Hyperlipidemia; Hypertension; mitral valve prolapse; hemmorhoids; pf1 - PSHx: 23:56 Appendectomy; pf1 - Social history:: Patient/guardian denies using alcohol, street drugs, IV drugs, caffeine, over the counter diet medications, tobacco products. - Family history:: not pertinent. Screenin/24 02:43 [facility] ED Fall Risk Assessment (Adult) History of falling in the last 3 months, kl including since admission No falls in past 3 months (0 pts) Confusion or Disorientation No (0 pts) Intoxicated or Sedated No (0 pts) Impaired Gait No (0 pts) Mobility Assist Device Used No (0 pt) Altered Elimination No (0 pt) Score/Fall Risk Level 0 - 2 = Low Risk Oriented to surroundings, Maintained a safe environment. Abuse screen: Denies threats or abuse. Nutritional screening: No deficits noted. Tuberculosis screening: No symptoms or risk factors identified. Assessment: 02:43 Reassessment: Patient appears in no apparent distress at this time. Patient denies pain kl at this time. Patient states feeling better. Patient states symptoms have improved. Pain: Denies pain. GI: Abdomen is flat, Abd is soft and non tender X 4 quads. Vital Signs: 03/18 23:50 BP 138 / 91; Pulse 104; Resp 18; Temp 103; Pulse Ox 97% on R/A; Weight 56.7 kg; Height pf1 5 ft. 5 in. ; Pain 9/10; 03/19 02:43 BP 133 / 77; Pulse 89; Resp 16; Pulse Ox 96% on R/A; kl 03:01 Temp 98.9(O); kl 03:19 BP 128 / 75; Pulse 74; kl 04:12 BP 127 / 66; Pulse 68; Resp 15; Pulse Ox 99% on R/A; kl 03/18 23:50 Body Mass Index 20.80 (56.70 kg, 165.1 cm) pf1 03/18 23:50 Pain Scale: Adult pf1 ED Course: 03/18 23:36 Patient arrived in ED. jj6 23:41 Kennedy Conklin MD is Attending Physician. sp4 23:56 Triage completed. pf1 03/19 00:10 Missed attempt(s): 22 gauge in right antecubital area. bc6 00:12 Radiology exam delayed due to lab results not completed at this time. (BUN/Creatinine) eh4 IV insertion attempt and/or patient not having appropriate IV at this time. 00:19 Missed attempt(s): 22 gauge in left forearm. bc6 01:17 CT Abd/Pelvis - IV Contrast Only In Process Unspecified. EDMS 02:44 Patient has correct armband on for positive identification. Bed in low position. Call kl light in reach. Side rails up X2. Pulse ox on. NIBP on. 03:19 SARS RAPID Sent. kl 03:19 Influenza Screen (a \T\ B) Sent. kl 04:12 No provider procedures requiring assistance completed. IV discontinued, intact, kl bleeding controlled, No redness/swelling at site. Pressure dressing applied. Administered Medications: 02:01 Drug: Ibuprofen PO 800 mg Route: PO; kl 03:58 Follow up: Response: Marked relief of symptoms kl 02:02 Drug: NS 0.9% IV 1000 ml Route: IV; Rate: 1 bolus; Site: left antecubital; kl 02:02 Drug: Ondansetron IVP 4 mg Route: IVP; Site: left antecubital; kl 03:58 Follow up: Response: No adverse reaction kl 02:02 Drug: Acetaminophen PO 1000 mg Route: PO; kl 03:58 Follow up: Response: Marked relief of symptoms kl 03:31 Drug: Rocephin - Rocephin (cefTRIAXone) IVPB 1 grams Route: IVPB; Infused Over: 30 kl mins; Site: left antecubital; 03:58 Follow up: IV Status: Completed infusion; IV Intake: 50ml kl Intake: 03:58 IV: 50ml; Total: 50ml. kl Outcome: 03:45 Discharge ordered by spEstrada 04:12 Discharged to home ambulatory. kl 04:12 Condition: improved 04:12 Discharge instructions given to patient, Instructed on discharge instructions, follow up and referral plans. medication usage, Demonstrated understanding of instructions, follow-up care, medications, Prescriptions given X 3. 04:13 Patient left the ED. kl Signatures: Dispatcher [employer] EDRegina Ramos RN RN kl Jeffries, Jennifer 6 Latanya Canchola [facility] Amrita Walsh RN RN pf1 Ivory Hammond 6 Kennedy Conklin MD MD sp4
[2023-03-19 04:33] VITALS: TEMP 98.9
[2023-03-19 04:35] VITALS: BP 127/66; O2SAT 99
--- NOTE | 2023-03-19 22:33 | RAD REPORT ---
EXAM DESCRIPTION: CT - Abdomen Pelvis W Contrast - 03/19/2023 6:21 am CLINICAL HISTORY: Pain with urination, lower back pain, fever TECHNIQUE: Contiguous axial images obtained through the abdomen and pelvis following the uneventful administration of IV contrast. Coronal and sagittal reformatted images were provided. This exam was performed according to our departmental dose-optimization program, which includes autom ated exposure control, adjustment of the mA and/or kV according to patient size and/or use of iterati ve reconstruction technique. COMPARISON: March 2019. FINDINGS: Lung bases: Clear Liver: Unremarkable Gallbladder and biliary system: Unremarkable Pancreas: Unremarkable Spleen: Unremarkable Adrenals: Unremarkable Kidneys: Normal renal cortical enhancement. No calculi No hydronephrosis. GI: No obstruction. No appreciable mucosal thickening. Mild sigmoid diverticulosis with no evidence o f diverticulitis. Appendix: Status post appendectomy. Urinary bladder: Incompletely distended. Reproductive: Unremarkable as visualized Lymph nodes: No pathologically enlarged lymph nodes. Peritoneum: No focal fluid collection. No free air. Vessels: No abdominal aortic aneurysm. Abdominal wall: Unremarkable Bones: Degenerative changes of the lumbar spine with scoliotic curvature, similar to the prior examin ation. IMPRESSION: 1. No acute intra-abdominal or pelvic disease. 2. Mild sigmoid diverticulosis with no evidence of diverticulitis. Electronically signed by: Jose Rose MD 03/19/2023 1:40 AM CDT Due to temporary technical issues with the PACS/Fluency reporting system, reports are being signed by the in house radiologists without review as a courtesy to insure prompt reporting. The interpreting radiologist is fully responsible for the content of the report.
== END 2023-03-19 04:13 | disposition home or self-care (01) ==
LOC: ER 23:33
DX: N39.0 Urinary tract infection, site not specified (principal); I10 Essential (primary) hypertension; Z88.8 Allergy status to other drugs, medicaments and biological substances; Z20.822 Contact with and (suspected) exposure to COVID-19
CPT/HCPCS: 96365; 85025; 36415; 81003; 83690; 80053; 87804 ×2; 74177; 96375; 99284; 87811; Q9967; J2405; J7030; J0696